=== PATIENT | female | born 1945 | race Two or more races ===

== ENCOUNTER 2024-09-17 06:38 | Day surgery (SDC) | payer OTHER ==
[~2024-09-17 06:38] MED LIST: MACROBID 100 M100 MG PO; ULTRACET PO
[2024-09-17] MEDS ORDERED: ONDANSETRON HCL 2 MG/ML VIAL IV ONE (10:30)
[2024-09-17] MEDS ORDERED: DIPHENHYDRAMINE HCL 50 MG/ML VIAL 1ML IV ONE (10:30)
[2024-09-17] MEDS ORDERED: fentaNYL CITRATE 50 MCG/ML AMPUL IV PUSH ONE (10:30)
[2024-09-17] MEDS ORDERED: MIDAZOLAM HCL 2 MG/2 ML VIAL IV ONE (10:30)
== END 2024-09-17 11:25 | disposition home or self-care (01) ==
LOC: AMB-ENDOS 06:38 → CIR.AMB 13:30
PROVIDERS: ATTEND Colon & Rectal Surgery
DX: D12.3 Benign neoplasm of transverse colon (principal); D12.5 Benign neoplasm of sigmoid colon; K63.5 Polyp of colon; K57.30 Diverticulosis of large intestine without perforation or abscess without bleeding